=== PATIENT | female | born 1960 | race Caucasian/White ===

== ENCOUNTER 2019-02-15 20:20 | Emergency (ER) | payer OTHER ==
--- NOTE | 2019-02-15 20:23 | EDM.PDOC ---
ED HPI GENERAL MEDICAL PROBLEM - General Chief Complaint: General Stated Complaint: Fever; body aches; not feeling well Time Seen by Provider: 02/15/19 20:21 - History of Present Illness INITIAL COMMENTS - FREE TEXT/NARRATIVE: Patient presents to the ED at [facility] for the evaluation of a headache, fever, dry cough, and body aches. Patient states her symptoms originally began about 2 weeks ago. She states the symptoms get better until last night when the symptoms returned. Patient has a subjective fever at home. She feels fatigued and weak. No eye or ear problems. Has a sore throat. No rhinitis or sinus problems. Patient states she is trying to stay well hydrated with good PO fluid intake. 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 body aches/frontal headache Pain Score (Numeric/FACES): 6 - Related Data Allergies Allergy/AdvReac Type Severity Reaction Status Date / Time No Known Allergies Allergy Verified 02/15/19 20:39 Home Meds: Home Meds Amoxicillin/Potassium Clav [Augmentin 875-125 Tablet] 1 each PO BID 9 Days #18 tablet 02/15/19 [Rx] Past Medical History Musculoskeletal History: Reports: Other (See Below) Other Musculoskeletal History: myalgia and myositis Oncologic (Cancer) History: Reports: Squamous Cell Carcinoma ED ROS GENERAL - Review of Systems Review Of Systems: See Below Constitutional: Reports: Fever, Chills, Other (body aches) HEENT: Reports: Throat Pain. Denies: Ear Pain, Eye Discharge, Rhinitis, Sinus Problem Respiratory: Reports: Shortness of Breath, Cough. Denies: Sputum Cardiovascular: Denies: Chest Pain, Palpitations GI/Abdominal: Denies: Abdominal Pain, Nausea, Vomiting Skin: Reports: No Symptoms Neurological: Reports: Headache (mild ache) ED EXAM, GENERAL - Physical Exam Exam: See Below Exam Limited By: No Limitations General Appearance: Alert, No Apparent Distress Eye Exam: Bilateral Eye: Normal Inspection Ears: Normal External Exam, Normal Canal, Normal TMs Ear Exam: Bilateral Ear: TM normal Nose: Normal Inspection Throat/Mouth: Other (posterior erythema; no exudate) Neck: Supple Respiratory/Chest: No Respiratory Distress, Lungs Clear, Decreased Breath Sounds Cardiovascular: Normal Peripheral Pulses, Regular Rate, Rhythm Peripheral Pulses: 2+: Radial (L), Radial (R) GI/Abdominal: Normal Bowel Sounds, Soft, Non-Tender Neurological: Alert, Oriented Skin Exam: Warm, Dry, Intact, Normal Color Course - Vital Signs Last Recorded V/S: Last Vital Signs Temp 37.6 C 02/15/19 20:30 Pulse 98 02/15/19 20:30 Resp 16 02/15/19 20:30 BP 139/87 02/15/19 20:30 Pulse Ox 97 02/15/19 20:30 - Orders/Labs/Meds Orders: Active Orders 24 hr Category Date Time Status Chest 2V [CR] Stat Exams 02/15/19 20:32 Taken CULTURE STREP A CONFIRMATION [] Stat Lab 02/15/19 20:33 Results STREP SCRN A RAPID W CULT CONF [] Stat Lab 02/15/19 20:33 Results Amoxicillin/Clavulanate K [Take Home: Amox/Clavulanate Med 02/15/19 21:18 Once 875-12, 2 Tab Pac] 1 packet PO ONETIME ONE Sodium Chloride 0.9% [Normal Saline] 1,000 ml Med 02/15/19 20:34 Active IV ONETIME Sodium Chloride 0.9% [Saline Flush] Med 02/15/19 20:34 Active 10 ml FLUSH ASDIRECTED PRN Peripheral IV Insertion Adult [OM.PC] Routine Oth 02/15/19 20:34 Ordered Medication Orders Sodium Chloride (Normal Saline) 1,000 mls @ 999 mls/hr IV ONETIME ONE Stop: 02/15/19 21:34 Last Admin: 02/15/19 20:40 Dose: 999 mls/hr Sodium Chloride (Saline Flush) 10 ml FLUSH ASDIRECTED PRN PRN Reason: Keep Vein Open Labs: Laboratory Tests 02/15/19 02/15/19 Range/Units 20:49 20:49 WBC 6.3 (4.0-10.0) x10^3/uL RBC 4.70 (4.00-5.50) x10^6/uL Hgb 13.7 (12.0-16.0) g/dL Hct 41.0 (33.0-47.0) % MCV 87.2 (78.0-93.0) fL MCH 29.1 (26.0-32.0) pg MCHC 33.4 (32.0-36.0) g/dL RDW Coeff of [place] 13.6 (10.0-15.0) % Plt Count 170 (130-400) x10^3/uL Neut % (Auto) 71.4 (50.0-80.0) % Lymph % (Auto) 15.8 L (25.0-50.0) % [place] % (Auto) 10.9 (2.0-11.0) % Eos % (Auto) 1.6 (0.0-4.0) % Baso % (Auto) 0.3 (0.2-1.2) % Sodium 140 (136-145) mmol/L Potassium 4.2 (3.5-5.1) mmol/L Chloride 105 (98-107) mmol/L Carbon Dioxide 25 (21-32) mmol/L Anion Gap 14.2 (10-20) mmol/L BUN 21 H (7-18) mg/dL Creatinine 0.9 (0.55-1.02) mg/dL Est Cr Clr Drug Dosing TNP Estimated GFR (MDRD) > 60 Glucose 108 H (74-106) mg/dL Calcium 9.6 (8.5-10.1) mg/dL Meds: Medications Generic Name Dose Route Start Last Admin Trade Name Freq PRN Reason Stop Dose Admin Sodium Chloride 1,000 mls @ 999 mls/hr 02/15/19 20:34 02/15/19 20:40 Normal Saline IV 02/15/19 21:34 999 mls/hr ONETIME ONE Administration Sodium Chloride 10 ml 02/15/19 20:34 Saline Flush FLUSH ASDIRECTED PRN Keep Vein Open Discontinued Medications Generic Name Dose Route Start Last Admin Trade Name Freq PRN Reason Stop Dose Admin Ceftriaxone Sodium 1 gm 02/15/19 21:11 Rocephin IVPUSH 02/15/19 21:12 STAT ONE Ketorolac Tromethamine 30 mg 02/15/19 20:34 02/15/19 20:40 Toradol IVPUSH 02/15/19 20:35 30 mg ONETIME ONE Administration - Radiology Interpretation Free Text/Narrative:: CXR: Early pneumonia versus aspiration left lower lobe. Hiatal Hernia. Mild cardiomegaly. See scanned report in EMR for details Departure - Departure Time of Disposition: 21:19 Disposition: Home, Self-Care 01 Condition: Good Clinical Impression: CAP (community acquired pneumonia) Qualifiers: Laterality: left Lung location: lower lobe of lung Qualified Code(s): J18.1 - Lobar pneumonia, unspecified organism - Discharge Information *PRESCRIPTION DRUG MONITORING PROGRAM REVIEWED*: Not Applicable *COPY OF PRESCRIPTION DRUG MONITORING REPORT IN PATIENT JUAN MANUEL: Not Applicable Prescriptions: Amoxicillin/Potassium Clav [Augmentin 875-125 Tablet] 1 each PO BID 9 Days #18 tablet Instructions: Community-Acquired Pneumonia, Adult Referrals: Alicia Avalos MD [Physician] - Forms: ED Department Discharge Additional Instructions: 1. Stay well hydrated and rest 2. No work if you still have a fever on Sunday 3. Take medication for the full coarse, even if you are feeling better 4. LOTS of water 5. Continue with Tylenol/Advil as needed for fever/pain 6. May try OTC cough suppressant if needed 7. See Dr. Avalos in about 10 days for a recheck - Problem List Review Problem List Initiated/Reviewed/Updated: Yes - My Orders Last 24 Hours: My Active Orders 02/15/19 20:32 Chest 2V [CR] Stat 02/15/19 20:33 CULTURE STREP A CONFIRMATION [RM] Stat STREP SCRN A RAPID W CULT CONF [RM] Stat 02/15/19 20:34 Sodium Chloride 0.9% [Normal Saline] 1,000 ml IV ONETIME Sodium Chloride 0.9% [Saline Flush] 10 ml FLUSH ASDIRECTED PRN Peripheral IV Insertion Adult [OM.PC] Routine 02/15/19 21:18 Amoxicillin/Clavulanate K [Take Home: Amox/Clavulanate 875-12, 2 Tab Pac] 1 packet PO ONETIME ONE - Assessment/Plan Last 24 Hours: My Active Orders 02/15/19 20:32 Chest 2V [CR] Stat 02/15/19 20:33 CULTURE STREP A CONFIRMATION [RM] Stat STREP SCRN A RAPID W CULT CONF [RM] Stat 02/15/19 20:34 Sodium Chloride 0.9% [Normal Saline] 1,000 ml IV ONETIME Sodium Chloride 0.9% [Saline Flush] 10 ml FLUSH ASDIRECTED PRN Peripheral IV Insertion Adult [OM.PC] Routine 02/15/19 21:18 Amoxicillin/Clavulanate K [Take Home: Amox/Clavulanate 875-12, 2 Tab Pac] 1 packet PO ONETIME ONE Assessment:: LLL Pneumonia Plan: Labs and xray discussed with patient. Dx LLL. Will treat as OP as patient does not meet sepsis criteria. Rocephin given in ED. Will start patient on Augmentin BID for 10 days. Recommend follow up with PCP in 10 days to reeval chest xr and resolution of symptoms.
[2019-02-15] MEDS ORDERED: Ketorolac 30 MG/ML SDV IVPUSH ONE (20:34)
[2019-02-15] MEDS ORDERED: Sodium Chloride 0.9% 1,000 ML IV ONE (20:34)
[2019-02-15] MEDS ORDERED: Sodium Chloride 0.9% 10 ML Syringe FLUSH PRN (20:34)
[2019-02-15 21:09] LABS: ANION GAP 14.2 mmol/L (10-20); CHLORIDE,CL 105 mmol/L (98-107); SODIUM,NA 140 mmol/L (136-145)
[2019-02-15] MEDS ORDERED: cefTRIAXone 1 GM Vial IVPUSH ONE (21:11)
[2019-02-15 21:12] VITALS: BP 139/87
[2019-02-15] MEDS ORDERED: Take Home: Amoxicillin/Clavulanate K 875-125 MG Tab, 2 Tab Pack PO ONE (21:18)
--- NOTE | 2019-02-16 10:22 | CR ---
[id number] RAD/RAD Chest PA And Lateral EXAM: RAD Chest PA And Lateral CLINICAL DATA: SHORTNESS OF BREATH. COUGH. FEVER. COMPARISON: NO PREVIOUS SIMILAR EXAM IS AVAILABLE. FINDINGS: The lungs are clear. There is a large hiatal hernia. The cardiac silhouette is enlarged. IMPRESSION: NO PNEUMONIA. Guido Sparrow MD 02/16/19 1021 Thank you for allowing us to participate in the care of your patient.
== END 2019-02-15 21:45 | disposition home or self-care (01) ==
LOC: VM.ED 20:20
DX: J18.1 Lobar pneumonia, unspecified organism (principal)
CPT/HCPCS: 71046; 80048; 85025; 87081; 87804; 87880; 96361; 96374; 96375; 99283; A9270; J0696; J1885; J7030

== ENCOUNTER 2020-12-10 20:21 | Emergency (ER) | payer OTHER ==
--- NOTE | 2020-12-10 20:28 | EDM.PDOC ---
ED HPI GENERAL MEDICAL PROBLEM - General Stated Complaint: POSSIBLE UTI Time Seen by Provider: 12/10/20 20:24 Source of Information: Reports: Patient - History of Present Illness INITIAL COMMENTS - FREE TEXT/NARRATIVE: Kimmy is a 60 y/o female who comes to the Er this evening with an acute of urinary frequency and urgency that just started about 2 hours ago. She denies any fever. She reports having similar sx when she had her son years ago, but she had not had any issues with bladder infections recently. 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: Musculoskeletal History: Reports: Other (See Below) Other Musculoskeletal History: myalgia and myositis Oncologic (Cancer) History: Reports: Squamous Cell Carcinoma Review of Systems - Review of Systems Review Of Systems: See Below Constitutional: Reports: No Symptoms Eyes: Reports: No Symptoms Ears: Reports: No Symptoms Nose: Reports: No Symptoms Mouth/Throat: Reports: No Symptoms Respiratory: Reports: No Symptoms Cardiovascular: Reports: No Symptoms GI/Abdominal: Reports: No Symptoms Genitourinary: Reports: Dysuria, Painful Urination Musculoskeletal: Reports: No Symptoms Skin: Reports: No Symptoms Neurological: Reports: No Symptoms Psychiatric: Reports: No Symptoms ED EXAM, GENERAL - Physical Exam Exam: See Below General Appearance: Alert, WD/WN, No Apparent Distress (Adult female.) Ears: Hearing Grossly Normal Nose: Normal Inspection Throat/Mouth: Normal Lips, Normal Voice Head: Atraumatic, Normocephalic Neck: Normal Inspection Respiratory/Chest: No Respiratory Distress, Lungs Clear Cardiovascular: Regular Rate, Rhythm GI/Abdominal: Normal Bowel Sounds, Soft (Female) Exam: Deferred Rectal (Female) Exam: Deferred Back Exam: Other (Negative CVAT) Extremities: Normal Inspection, Normal Range of Motion, Normal Capillary Refill Neurological: Alert, Oriented, CN II-XII Intact, Normal Cognition, Normal Gait Psychiatric: Normal Affect Skin Exam: Warm, Dry, Intact, Normal Color Lymphatic: No Adenopathy Course - Vital Signs Text/Narrative:: 2023 The patient was seen by the TURNTABLE WORKER. UA was ordered. 2044 UA results reviewed, note +UTI. Will Cx urine. Results discussed with patient. Her questions were answered. She was sent home with a starter pack of Macrobid. She was given discharge instructions and left the ER in stable condition. - Orders/Labs/Meds Orders: Active Orders 24 hr Category Date Time Status CULTURE URINE [RM] Stat Lab 12/10/20 20:28 Received Labs: Laboratory Tests 12/10/20 Range/Units 20:28 Urine Color Light yellow (YELLOW) Urine Appearance Slightly cloudy H (CLEAR) Urine pH 6.5 (5.0-8.0) Ur Specific [place] 1.010 Urine Protein 30 H (NEGATIVE) mg/dL Urine Glucose (UA) Negative (NEGATIVE) mg/dL Urine Ketones Negative (NEGATIVE) mg/dL Urine Occult Blood Large H (NEGATIVE) Urine Nitrite Negative (NEGATIVE) Urine Bilirubin Negative (NEGATIVE) Urine Urobilinogen 0.2 (0.2) EU/dL Ur Leukocyte Esterase Large H (NEGATIVE) Urine RBC 5-10 H (NOT SEEN) /HPF Urine WBC 20-30 H (NOT SEEN) /HPF Ur Squamous Epith Cells Few H (NEGATIVE) /HPF Urine Bacteria Rare (NEGATIVE) /HPF Urine Mucus Rare H (NEGATIVE) /LPF Meds: Medications Discontinued Medications Generic Name Dose Route Start Last Admin Trade Name Freq PRN Reason Stop Dose Admin Nitrofurantoin Macrocrystals 1 packet 12/10/20 20:50 12/10/20 20:53 Take Home: Nitrofur [place]/Ma 100 Mg, 2 Pack PO 12/10/20 20:51 1 packet ONETIME ONE Administration Departure - Departure Time of Disposition: 20:49 Disposition: Home, Self-Care 01 Condition: Good Clinical Impression: UTI (urinary tract infection) Qualifiers: Urinary tract infection type: site unspecified Hematuria presence: with hematuria Qualified Code(s): N39.0 - Urinary tract infection, site not specified - Discharge Information *PRESCRIPTION DRUG MONITORING PROGRAM REVIEWED*: Not Applicable *COPY OF PRESCRIPTION DRUG MONITORING REPORT IN PATIENT JUAN MANUEL: Not Applicable Prescriptions: Nitrofurantoin Monohyd/M-Cryst [Macrobid 100 mg Capsule] 100 mg PO BID #14 capsule Instructions: Urinary Tract Infection, Adult Referrals: Alicia Avalos MD [Primary Care Provider] - Additional Instructions: -Macrodantin 100mg oral twice daily x 7 days #14(Rx) -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 You can find these at a local store. You can use 1-2 tablets 3x daily. Do not be alarmed as these meds may turn your urine a dark orange color, this will resolve when you are done taking them. -Drink plenty of fluids -Rest as needed -Follow up with your PCP in clinic if you are not getting better orreturn to the ER if your symptoms are worse or any other concerns - My Orders Last 24 Hours: My Active Orders 12/10/20 20:28 CULTURE URINE [RM] Stat - Assessment/Plan Last 24 Hours: My Active Orders 12/10/20 20:28 CULTURE URINE [RM] Stat
[2020-12-10] MEDS ORDERED: Take Home: Nitrofurantoin Monohydrate/Macrocrystalline 100 MG, 2 Cap Pack PO ONE (20:50)
[2020-12-11 01:06] VITALS: BP 129/81; PULSE 88
== END 2020-12-10 21:00 | disposition home or self-care (01) ==
LOC: VM.ED 20:21
DX: N39.0 Urinary tract infection, site not specified (principal); R31.9 Hematuria, unspecified
CPT/HCPCS: 81001; 87086; 99283; A9270-GY

== ENCOUNTER 2025-05-03 22:44 | Emergency (ER) | payer OTHER ==
[2025-05-03 23:09] VITALS: BP 166/97; PULSE 73
[2025-05-03 23:13] LABS: APPEARANCE,URINE CLEAR (CLEAR); BILIRUBIN,URINE NEGATIVE (NEGATIVE); COLOR,URINE YELLOW (YELLOW); GLUCOSE,URINE NEGATIVE (NEGATIVE); KETONES,URINE NEGATIVE (NEGATIVE); LEUKOCYTE ESTERASE,URINE NEGATIVE (NEGATIVE); NITRITE,URINE NEGATIVE (NEGATIVE); OCCULT BLOOD,URINE NEGATIVE (NEGATIVE); PH,URINE 7.5 (5.0-8.0); PROTEIN,URINE NEGATIVE (NEGATIVE); UROBILINOGEN,URINE 0.2 EU/dL (0.2)
[2025-05-03 23:25] LABS: RBC,URINE 0-5 /HPF (NOT SEEN)
[2025-05-03 23:30] LABS: BACTERIA,URINE RARE /HPF (NOT SEEN); SQUAMOUS EPITHELIAL CELLS,UR MODERATE /HPF (NOT SEEN); WBC,URINE 0-5 /HPF (NOT SEEN)
[2025-05-03] MEDS: Phenazopyridine 95 MG Tab PO ONE (23:30)
[2025-05-03] MEDS: Take Home: Nitrofurantoin Monohydrate/Macrocrystalline 100 MG, 6 Cap Pack PO ONE (23:35)
== END 2025-05-03 23:44 | disposition home or self-care (01) ==
LOC: VM.ED 22:44
DX: N39.0 Urinary tract infection, site not specified (principal); Z79.899 Other long term (current) drug therapy
CPT/HCPCS: 81001; 99283; A9270-GY